=== PATIENT | male | born 1975 | race African-American/Black ===

== ENCOUNTER 2020-07-28 13:41 | Emergency (ER) | payer OTHER ==
[~2020-07-28] VITALS: Ht 165.1 cm; Wt 64.0 kg
[2020-07-28 13:43] VITALS: BP 129/89
[2020-07-28] MEDS ORDERED: METH4TAB2 PO (14:09)
[2020-07-28] MEDS ORDERED: CYCL10TA2 PO (14:09)
[2020-07-28] MEDS ORDERED: GABA300C18 PO (14:09)
[2020-07-28] MEDS ORDERED: NAPR-514 PO (14:09)
--- NOTE | 2020-07-28 14:09 | PHYS DOC ---
Past Medical History Past Medical History: No Pertinent History Past Surgical History: No Surgical History Smoking Status: Never Smoker Alcohol Use: None General Adult EDM: Chief Complaint: LOWER BACK PAIN OR INJURY HPI: HPI: Patient is a 45 year old male patient who presents to the ED today complaining of 8 out of 10 bilateral low back pain described as sharp and intermittent, symptoms began 3 days ago after he bent down and twisted wrong trying to lift some items at work. He works for a [employer]. Patient states the pain is worse on bending and twisting. Denies anything specifically relieving the pain. States he has been using some heating pads with no relief. Denies any pain radiating to bilateral lower extremities. Denies any numbness or tingling to bilateral lower extremities. Denies any loss of bowel/bladder function. Review of Systems: Review of Systems: Constitutional: Denies fever or chills. [] GI: Denies abdominal pain, nausea, vomiting, bloody stools or diarrhea. [] : Denies dysuria. [] Musculoskeletal: Reports low back pain Integument: Denies rash. [] Neurologic: Denies headache, focal weakness or sensory changes. [] ] Psychiatric: Denies depression or anxiety. [] Heart Score: Risk Factors: Risk Factors: DM, Current or recent (<one month) smoker, HTN, HLP, family history of CAD, obesity. Risk Scores: Score 0 - 3: 2.5% MACE over next 6 weeks - Discharge Home Score 4 - 6: 20.3% MACE over next 6 weeks - Admit for Clinical Observation Score 7 - 10: 72.7% MACE over next 6 weeks - Early Invasive Strategies Allergies: Allergies: Allergies Coded Allergies Type Severity Reaction Last Updated Verified No Known Drug Allergies 07/28/20 No Physical Exam: PE: Constitutional: Well developed, well nourished, no acute distress, non-toxic appearance. [] Abdomen: Bowel sounds normal, soft, no tenderness, no masses, no pulsatile masses. [] Skin: Warm, dry, no erythema, no rash. [] Back: Diffuse paraspinal muscle tenderness to bilateral lumbar spine, no midline lumbar spine tenderness, no CVA tenderness. [] Extremities: No tenderness, no cyanosis, no clubbing, ROM intact, no edema. [] Neurologic: Alert and oriented X 3, normal motor function, normal sensory function, no focal deficits noted. [] Psychologic: Affect normal, judgement normal, mood normal. [] Current Patient Data: Vital Signs: Vital Signs Date Time Temp Pulse Resp B/P (MAP) Pulse Ox O2 Delivery O2 Flow Rate FiO2 07/28/20 13:43 98.8 91 16 129/89 (102) 98 Room Air 98.8 EKG: EKG: [] Radiology/Procedures: Radiology/Procedures: [] Course & Med Decision Making: Course & Med Decision Making Pertinent Labs and Imaging studies reviewed. (See chart for details) This is a 45-year-old male patient presenting to the ED today with bilateral low back pain that began 3 days ago after bending and twisting while at work. Patient has no cauda equina syndrome symptoms. The pain appears musculoskeletal. Supportive care measures recommended. Also given prescription for Medrol Dosepak, gabapentin, naproxen and Flexeril. Encouraged to follow-up with Workmen's Comp. considering this is a work-related injury. Kenia Disclaimer: Kenia Disclaimer: This electronic medical record was generated, in whole or in part, using a voice recognition dictation system. Departure Departure Impression: Primary Impression: Acute lumbosacral myofascial strain Qualified Codes: S39.012A - Strain of muscle, fascia and tendon of lower back, initial encounter Disposition: 01 DC HOME SELF CARE/HOMELESS Condition: STABLE Patient Instructions: Lumbosacral Strain Additional Instructions: You were evaluated in the emergency room for back pain consistent with muscle strain. Consider using a heating pad to your low back. Take the prescribed medications as ordered. Follow-up with your own doctor or Workmen's Comp. doctor in 1 to 2 weeks Scripts Methylprednisolone (MEDROL) 4 Mg Tab.ds.pk 1 PKG PO UD, #1 PKG Prov: MUTUNGASUHA [employer] CLERK 07/28/20 Naproxen (NAPROXEN) 500 Mg Tablet 1 TAB PO BID for pain, #30 TAB 0 Refills Prov: MUTUNGASUHA [employer] CLERK 07/28/20 Cyclobenzaprine Hcl (CYCLOBENZAPRINE HCL) 10 Mg Tablet 1 TAB PO TID, #30 TAB Prov: MUTUNGASUHA [employer] CLERK 07/28/20 Gabapentin (GABAPENTIN ) 300 Mg Capsule 300 MG PO TID for NEUROGENIC PAIN, #30 CAP Prov: MUTUNGASUHA PARIS 07/28/20 SUHA BRANNON APRN Jul 28, 2020 14:09
== END 2020-07-28 14:15 | disposition home or self-care (01) ==
LOC: ER 13:41
DX: S39.012A Strain of muscle, fascia and tendon of lower back, initial encounter (principal); X50.9XXA Other and unspecified overexertion or strenuous movements or postures, initial encounter; Y93.89 Activity, other specified; Y92.69 Other specified industrial and construction area as the place of occurrence of the external cause; Y99.0 Civilian activity done for income or pay
CPT/HCPCS: 99283